=== PATIENT | male | born 1960 | race Two or more races ===

== ENCOUNTER → 2022-09-27 | Outpatient (CLI) | payer MEDICAID | END | disposition home or self-care (01) | LOC: Rad HDHVI 10:51 | PROVIDERS: ATTEND Internal Medicine Cardiovascular Disease | DX: I35.0 Nonrheumatic aortic (valve) stenosis (principal); R06.02 Shortness of breath | CPT/HCPCS: 93306 ==

== ENCOUNTER → 2022-10-02 | Outpatient (CLI) | payer MEDICAID ==
[~2022-10-02] VITALS: Ht 170.2 cm; Wt 98.9 kg
[~2022-10-02] MED LIST: ADENOSINE 83 MG in GIVE UN-DILUTED 0 ML IV ONE; ADENOSINE 90 MG/30 ML INJ IV ONE
== END | disposition home or self-care (01) ==
LOC: Rad HDHVI 13:13
PROVIDERS: ATTEND Internal Medicine Cardiovascular Disease
DX: R07.89 Other chest pain (principal); R06.02 Shortness of breath; I95.9 Hypotension, unspecified; E78.5 Hyperlipidemia, unspecified; R42 Dizziness and giddiness
CPT/HCPCS: 78452; 93005; 96374; 96375; A9500; J0153

== ENCOUNTER → 2022-11-28 | Outpatient (CLI) | payer MEDICAID | END | disposition home or self-care (01) | LOC: Rad HDHVI 11:44 | PROVIDERS: ATTEND Internal Medicine Cardiovascular Disease | DX: I65.23 Occlusion and stenosis of bilateral carotid arteries (principal); G62.9 Polyneuropathy, unspecified | CPT/HCPCS: 93880 ==

== ENCOUNTER → 2022-12-26 | Outpatient (CLI) | payer OTHER ==
[~2022-12-26] MED LIST changes: -ADENOSINE 83 MG in GIVE UN-DILUTED 0 ML IV ONE; -ADENOSINE 90 MG/30 ML INJ IV ONE; +ALBU108A5 IN; +ASPI1TAB20 PO; +BENZ100C97 PO; +BUPR75TA96 PO; +CYCL15CA27 PO; +DOCU-94 PO; +ESCI20TA PO; +FLUD0.1T2 PO; +GABA-1250 PO; +MELO-335 PO; +NAP500T PO; +OMEP-448 PO; +OMEP20TA PO; +ROSU40TA81 PO; +[UNRECOGNIZED DRUG - CODE] PO; +[UNRECOGNIZED DRUG - CODE] PO
[2022-12-26 09:40] VITALS: BP 113/69; PULSE 84; RESP 16; O2SAT 97
[2022-12-26 10:05] VITALS: BP 107/67; PULSE 58; RESP 16; O2SAT 97
== END | disposition home or self-care (01) ==
LOC: CHF HDHVI 09:26
PROVIDERS: ATTEND Internal Medicine Cardiovascular Disease
DX: Z01.818 Encounter for other preprocedural examination (principal); I10 Essential (primary) hypertension; I20.0 Unstable angina
CPT/HCPCS: 93005; G0463

== ENCOUNTER 2022-12-27 10:20 | Day surgery (SDC) | payer OTHER, MEDICAID ==
[2022-12-26 11:42] LABS: Basophils # (auto) 0 10 ^3/uL (0-0.2); Eosinophils # (auto) 0.1 10 ^3/uL (0-0.8); White Blood Cell 5.6 10^3/uL (4.4-10.8)
[2022-12-26 11:45] LABS: Basophils % (auto) 0.7 % (0.0-2.0); Eosinophils % (auto) 1.2 % (0.0-7.0); Lymphocytes % (auto) 36.3 % (10.0-50.0); Mean Corpuscular Hgb Conc. 34.5 g/dL (32.0-36.0); Mean Corpuscular Volume 92.6 fL (80.0-100.0); Monocytes # (auto) 0.4 10 ^3/uL (0-1.3); Monocytes % (auto) 6.3 % (0.0-12.0); Neutrophils # (auto) 3.1 10 ^3/uL (1.6-8.6); Neutrophils % (auto) 55.5 % (37.0-80.0); Nucleated Red Blood Cells % 0.4 %; Red Blood Cells 5.94 10^6/uL (4.5-5.90); Red Cell Distribution Width 14.6 % (11.8-14.3)
[2022-12-26 11:47] LABS: INR 0.98 (0.9-1.15); Prothrombin Time 10.3 sec (9.3-11.8)
[2022-12-26 11:54] LABS: Chloride 105 mmol/L (98-107); Potassium 5.2 mmol/L (3.5-5.1); Sodium 139 mmol/L (136-145)
[2022-12-26 11:55] LABS: Anion Gap 5 (5-15); Calcium 9.6 mg/dL (8.5-10.1); Carbon Dioxide 29 mmol/L (20-30)
[2022-12-26 12:00] LABS: BUN/Creatinine Ratio 19.4 (10.0-20.0); Blood Urea Nitrogen 20 mg/dL (9-23); Glucose 122 mg/dL (74-106)
[~2022-12-27] VITALS: Ht 170.2 cm; Wt 98.4 kg
[~2022-12-27 10:20] MED LIST changes: -BUPR75TA96 PO; -OMEP-448 PO
[2022-12-27] MEDS ORDERED: VERAPAMIL 2.5MG/ML INJ 2ML VIAL IV ONE (13:14)
[2022-12-27] MEDS ORDERED: ANGIOMAX 250 MG VIAL IV ONE (13:14)
[2022-12-27] MEDS ORDERED: MIDAZOLAM HCL 2MG/2ML 2ml VIAL (1mg/ml) ONE (13:14)
[2022-12-27] MEDS ORDERED: fentaNYL CITRATE 100 MCG/2 ML VL ONE (13:14)
[2022-12-27] MEDS ORDERED: HEPARIN SODIUM (PORCINE) 5000 UNITS/ML 1ML VIAL ONE (13:14)
[2022-12-27] MEDS ORDERED: LIDOCAINE 2%HCL (LOCAL ANESTH.) INJ 20ML MDV ONE (13:15)
[2022-12-27] MEDS ORDERED: IOHEXOL 350 MG/ML 100ML IJ ONE (13:15)
[2022-12-27] MEDS ORDERED: SODIUM CHL 0.9% 0 ML ONE (13:15)
[2022-12-27] MEDS ORDERED: OMEP-448 PO (14:48)
== END 2022-12-27 16:13 | disposition home or self-care (01) ==
LOC: CATH 10:20
PROVIDERS: ATTEND Internal Medicine Cardiovascular Disease
DX: R07.89 Other chest pain (principal); I10 Essential (primary) hypertension; Z79.899 Other long term (current) drug therapy; Z79.82 Long term (current) use of aspirin; I25.2 Old myocardial infarction; E78.5 Hyperlipidemia, unspecified
CPT/HCPCS: 36415; 71045; 80048; 85025; 85610; 85730; 93458; C1725; C1769; C1894; J1644; J2250; J3010; Q9967; 99152